=== PATIENT | female | born 2000 | race American Indian/Alaskan Native ===

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

== ENCOUNTER 2022-01-15 16:09 | Emergency (ER) | payer MEDICAID ==
[2022-01-15 16:43] VITALS: BP 102/57
--- NOTE | 2022-01-15 16:47 | Event Note ---
ED Screening Note Date of service: 01/15/22 Time: 16:42 ED Screening Note: This initial assessment/diagnostic orders/clinical plan/treatment(s) is/are subject to change based on patients health status, clinical progression and re- assessment by fellow clinical providers in the ED. Further treatment and workup at subsequent clinical providers discretion. Patient/guardian urged not to elope from the ED as their condition may be serious if not clinically assessed and managed. Patient with Epigastric pain, constipation and rectal pain intermittently for 3 days. Last good BM ? - 2 days ago. Laxative with small BM. No fever, urinary Sx. no N/V/D. Vaginal bleeding - spotting since menses started 2 weeks ago. Initial orders include: My Active Orders 01/15/22 16:43 Complete Blood Count Auto Diff Stat Comprehensive Metabolic Panel Stat HCG Qualitative, Serum Stat Lipase Stat Urinalysis Complete Stat
[2022-01-15 20:26] LABS: Bilirubin,Urine NEG (Negative); Blood,Urine MOD (Negative); Color,Urine Yellow (Yellow); Protein,Urine <15 mg/dL mg/dL (Negative)
[2022-01-15 20:30] LABS: Mucus,Urine 2+ /HPF; Urobilinogen,Urine < 2 mg/dL (<2.0)
[2022-01-15 21:24] LABS: Alanine Aminotransferase 6 units/L (7-56); Albumin 5.1 g/dL (3.9-5); Blood Urea Nitrogen 5 mg/dL (7-17); Calcium 10.2 mg/dL (8.4-10.2); Hemolysis Index 24
[2022-01-15 21:28] LABS: Basophils % (Auto) 0.4 % (0.0-1.8); Eosinophils # (Auto) 0.1 K/mm3 (0.0-0.4); Eosinophils % (Auto) 1.9 % (0.0-4.3); Hemoglobin 11.8 gm/dl (10.1-14.3); Lymphocytes # (Auto) 1.9 K/mm3 (1.2-5.4); Lymphocytes % (Auto) 35.2 % (13.4-35.0); Mean Corpuscular HGB Conc 31 % (30-34); Mean Corpuscular Volume 79 fl (79-97); Monocytes # (Auto) 0.3 K/mm3 (0.0-0.8); Platelet Count 316 K/mm3 (140-440); Red Blood Count 4.81 M/mm3 (3.65-5.03); Red Cell Distribution Width 12.8 % (13.2-15.2)
[2022-01-15 22:00] LABS: BUN/Creatinine Ratio 8
== END 2022-01-15 19:15 | disposition left against medical advice (07) ==
LOC: ED 16:09
DX: R07.9 Chest pain, unspecified (principal); Z53.21 Procedure and treatment not carried out due to patient leaving prior to being seen by health care provider
CPT/HCPCS: 36415; 80053; 81001; 83690; 84703; 85025; 87086